=== PATIENT | female | born 1990 | race Caucasian/White ===

== ENCOUNTER → 2019-11-21 | Outpatient (CLI) | payer OTHER ==
--- NOTE | 2019-11-21 20:46 | NEURO WORKBENCH EEG REPORT ---
EEG Report Patient: Christen Bae ID: [id number] Referring Doctor: Alexandro Arreaga MD DOS: 11/21/2019 Medications: Keppra, Zonisamide History This is a 29 year old right handed female with a history of migraines, seizures (focal) since age 17 with family history of seizures. This EEG was requested for seizures. EEG Interpretation This EEG was recorded in the awake and drowsy states. The awake EEG is characterized by a well-organized background with a well-developed and reactive posterior dominant rhythm of 10 Hz. The remainder of the background was characterized by a combination of alpha with beta frequencies. There were several bursts of bi-frontal predominant ~5-6Hz frequency waves. These appeared to increase during drowsiness and did not appear to have obvious notching. They are more consistent with hypnogogic hypersynchrony than generalized epileptiform fragments. Drowsiness was characterized by slowing of the background rhythms. Photic stimulation resulted in a good driving response. Hyperventilation resulted in mild generalized background slowing. There were no definitive epileptiform abnormalities. The EKG showed an irregular rhythm. EEG Classification * EKG irregular rhythm EEG Impression This EEG is within normal limits for age. The EKG showed an irregular rhythm which may require further investigation. INTERPRETING NEUROLOGIST: Kelly Honeycutt MD, FRCPC Board Certified in Neurology, with special qualification in Child Neurology, and in Clinical Neurophysiology [facility]
== END ==
LOC: NEURO 07:57
PROVIDERS: ATTEND Pediatrics
DX: G40.909 Epilepsy, unspecified, not intractable, without status epilepticus (principal); G40.109 Localization-related (focal) (partial) symptomatic epilepsy and epileptic syndromes with simple partial seizures, not intractable, without status epilepticus
CPT/HCPCS: 95819

== ENCOUNTER → 2019-12-01 | Outpatient (CLI) | payer OTHER ==
--- NOTE | 2019-12-01 18:11 | EKG REPORT ---
SEVERITY:- NORMAL ECG - SINUS RHYTHM : Confirmed by: Antonino Vyas 01-Dec-2019 18:10:43
== END ==
LOC: OD 14:03
PROVIDERS: ATTEND Pediatrics
DX: G40.109 Localization-related (focal) (partial) symptomatic epilepsy and epileptic syndromes with simple partial seizures, not intractable, without status epilepticus (principal); R94.31 Abnormal electrocardiogram [ECG] [EKG]
CPT/HCPCS: 93005; 93010